=== PATIENT | female | born 1970 | race Two or more races ===

== ENCOUNTER 2018-09-24 06:31 | Day surgery (SDC) | payer OTHER ==
[2018-09-24] MEDS ORDERED: CEFAZOLIN 2 GM/50 ML (PMX) 50 ML IVPB (07:00)
[2018-09-24] MEDS ORDERED: SEVOFLURANE 15 MIN (07:00)
[2018-09-24] MEDS ORDERED: CEFAZOLIN 1 GM INJ (07:00)
[2018-09-24] MEDS: SOD CHLORIDE 0.9% 1,000 ML IV (11:20)
[2018-09-24] MEDS ORDERED: ISOSULFAN BLUE 1% 5 ML INJ SC (11:42)
[2018-09-24] MEDS ORDERED: PROCHLORPERAZINE 10 MG INJ IV (12:00)
[2018-09-24] MEDS ORDERED: EPHEDrine SULFATE 50 MG/5 ML SYG IV (12:00)
[2018-09-24] MEDS ORDERED: MEPERIDINE 25 MG INJ IV (12:00)
[2018-09-24] MEDS ORDERED: LABETALOL HCL 20MG INJ IV (12:00)
[2018-09-24] MEDS ORDERED: ONDANSETRON 4 MG INJ IV (12:00)
[2018-09-24] MEDS ORDERED: FENTAnyl 50 MCG/ML VIAL IV ×3 (12:00)
[2018-09-24] MEDS ORDERED: hydrALAzine 20 MG INJ IV (12:00)
[2018-09-24] MEDS ORDERED: HYDROmorphONE 1 MG/5 ML IV SYRINGE IV ×3 (12:00)
[2018-09-24] MEDS ORDERED: DIPHENHYDRAMINE 50 MG INJ IV (12:00)
[2018-09-24] MEDS ORDERED: MIDAZOLAM 1 MG/ML 2 ML INJ (12:02)
[2018-09-24] MEDS ORDERED: FENTAnyl 50 MCG/ML VIAL (12:02)
[2018-09-24] MEDS ORDERED: LIDOCAINE 2% (SDV) 5 ML INJ (12:04)
[2018-09-24] MEDS ORDERED: PROPOFOL 20 ML (12:04)
[2018-09-24] MEDS ORDERED: ONDANSETRON 4 MG INJ (12:19)
[2018-09-24] MEDS ORDERED: DEXAMETHASONE 4 MG/ML 5 ML INJ (12:20)
[2018-09-24] MEDS ORDERED: FAMOTIDINE 20 MG INJ (12:22)
[2018-09-24] MEDS: BUPIVACAINE 0.25% (MPF) 30 ML INJ (12:37)
[2018-09-24] MEDS ORDERED: EPHEDrine 50 MG INJ (13:00)
[2018-09-24] MEDS ORDERED: HYDROCODONE/APAP (5/325) TAB PO (13:00)
== END 2018-09-24 14:38 | disposition home or self-care (01) ==
LOC: SDS 06:31
DX: N60.22 Fibroadenosis of left breast (principal); E03.9 Hypothyroidism, unspecified
CPT/HCPCS: 14000; 84703; 88307